=== PATIENT | male | born 1980 | race Two or more races ===

== ENCOUNTER 2022-03-28 17:56 | Emergency (ER) | payer SELFPAY ==
[~2022-03-28] VITALS: Ht 175.3 cm; Wt 77.1 kg
[2022-03-28 18:08] VITALS: BP 127/80
--- NOTE | 2022-03-28 20:30 | NUR ---
Michael serrano in LEV - 03/28/22 at 2057 by DARYA Patient discharged to home in stable condition. Written and verbal after care instructions given. Patient verbalizes understanding of instruction.
--- NOTE | 2022-03-28 20:57 | NUR ---
Michael serrano in ED - 03/28/22 at 2058 by DARYA Patient eloped from [facility]. ZAYNAB LONDON notified.
--- NOTE | 2022-03-28 20:58 | NUR ---
Patient discharged to home in stable condition. Written and verbal after care instructions given. Patient verbalizes understanding of instruction.
== END 2022-03-28 21:02 | disposition home or self-care (01) ==
LOC: ER 18:01
DX: K12.0 Recurrent oral aphthae (principal); K14.0 Glossitis